=== PATIENT | male | born 1955 | race Caucasian/White ===

== ENCOUNTER 2020-09-30 09:16 | Day surgery (SDC) | payer OTHER ==
[2020-09-30] MEDS ORDERED: Sodium Chloride 0.9% 1,000 ML IV SCH (10:00)
[2020-09-30] MEDS ORDERED: fentaNYL 100 MCG/2 ML SDV ONE (10:17)
[2020-09-30] MEDS ORDERED: Midazolam 1 MG/ML 2 ML SDV ONE (10:17)
[2020-09-30] MEDS ORDERED: Propofol 200 MG/20 ML SDV ONE (10:17)
[2020-09-30 10:21] LABS: CORONAVIRUS COVID-19 NAA NEGATIVE (NEGATIVE)
[2020-09-30] MEDS ORDERED: Lidocaine 1% with EPINEPHrine 1:100,000 50 ML MDV ONE (11:40)
[2020-09-30] MEDS ORDERED: Scopolamine 1.5 MG Transdermal Patch TOP ONE (12:00)
[2020-09-30] MEDS: Morphine 2 MG/ML SYRINGE IVPUSH PRN ×2 (12:56→13:56)
--- NOTE | 2020-10-03 09:50 | OR ---
DATE OF PROCEDURE: 09/30/2020 SURGEON: Aneesh Valladares MD PROCEDURE: PEG tube placement. COMPLICATIONS: None. PILLAR MAN: None. ANESTHESIA: MAC. PREOPERATIVE DIAGNOSES: Oral cancer/malnutrition. POSTOPERATIVE DIAGNOSES: Oral cancer/malnutrition. RISKS: Risks, benefits, alternatives, and limitations including but not limited to infection, bleeding, perforation, and false positives and false negatives were explained to the patient who wished to proceed. We also discussed respiratory compromise, incorrect placement, and other risks not listed here. PROCEDURE IN DETAIL: The patient was placed in supine position. The EGD scope was introduced and advanced into the stomach. Using transillumination technique, the area in the stomach was identified, anesthetized with lidocaine. A single adalberto was created in the skin. A needle was introduced, and a wire was introduced through the . This was grasped with the kit wire through the scope. This blue wire was then brought back in, and the pull-type PEG feeding tube was introduced. This was placed in the stomach. This was then sutured into place. The bumper and shut off valve were also placed without difficulty. The abdomen was reinspected. The PEG tube had good placement. The patient's family was instructed preoperatively to have the suture removed at their ENT visit in approximately 1 week. An additional suture was placed around this to ensure decreased movement and dislodgement. The patient tolerated the procedure well. Aneesh Valladares MD /[id number]
== END 2020-09-30 14:20 | disposition home or self-care (01) ==
LOC: JP.SDS 09:16
PROVIDERS: ATTEND Surgery
DX: C06.9 Malignant neoplasm of mouth, unspecified (principal); J44.9 Chronic obstructive pulmonary disease, unspecified; Z01.812 Encounter for preprocedural laboratory examination; Z20.822 Contact with and (suspected) exposure to COVID-19
CPT/HCPCS: 0241U; 43246; A9270; J2250; J2270; J2704; J3010; J7030